=== PATIENT | female | born 1995 | race Caucasian/White ===

== ENCOUNTER 2017-11-08 13:31 | Inpatient (IN) ==
[2017-11-08] MEDS ORDERED: ACETAMINOPHEN 650 MG/20.3 ML SOLUTION PO PRN (15:36)
[2017-11-08] MEDS ORDERED: Bisacodyl EC TAB 5 MG TABLET PO PRN (15:40)
[2017-11-08] MEDS ORDERED: CALCIUM CARBONATE 500 MG TABLET PO SCH (15:45)
--- NOTE | 2017-11-08 15:58 | IRU History & Physical Report ---
HPI U Date: Date: 11/08/17 Time: 154 Chief complaint: My memory is poor and I'm weak HPI: Ms. Sheth is a very pleasant 22-year-old female referred by Dr. Sami Faust in [place]. Her primary care physician is Dr. Karan Victor. The patient underwent Karan-en-Y gastric bypass procedure in July 2017 for morbid obesity. Since that time she has had frequent episodes of vomiting and has required intravenous fluids due to electrolyte imbalance and dehydration. The vomiting has improved somewhat although she states that she continues to have fairly constant nausea and at least one episode of emesis of food particles daily. She has been given numerous antinausea medications including Zofran, Reglan, scopolamine patch and nothing is really work. She was given Phenergan but that made her sleepy. She has lost some 100 pounds since the surgery in July. She states that she does not modify her diet in terms of consistency. She tries to eat smaller quantities. She was started on daily IV fluids due to dehydration and recurrent nausea and vomiting. That lasted about a week. Some time during that episode she was diagnosed with bilateral otitis externa. Culture was positive for what appear to be community-acquired MRSA. She was placed on IV vancomycin and also had been receiving intravenous fluids 1-2 L with potassium daily as an outpatient. Upon reassessing her laboratory values she was noted to have a vancomycin trough level of 39 and a creatinine elevated at 3.4. For this reason she was admitted to [facility]. The patient was hospitalized at [facility] on 10/22/2017. She was seen by nephrology who felt as though the acute kidney injury was related either to dehydration or tubular toxicity induced by vancomycin. Her initial creatinine on October 22 was 3.4. Baseline was normal at 0.6 back in August 2017. Most recent creatinine available is 1.5 as of 11/07/2017. Renal ultrasound was negative. She did not require dialysis. She was seen by infectious disease (Dr. Jimmie Longoria) in [place]. Diagnosis was bilateral otitis externa consistent with impetigo or superficial community- acquired MRSA infection. He raised the possibility of relapsing polychondritis but felt as though the areas of the pinnae involved were not typical for that condition. He recommended discontinuance of vancomycin and use of topical agents on an as-needed basis only. While in [place] she experienced an episode of altered mental status. Based on neurology comments (10/28/2017) from [place], her altered mental status consisted of headache, blurry vision and lethargy. CT scan was done which was negative. While in the CT scanner room she experienced seizure-like activity. According to the nurse, the patient "turned blue and stopped breathing" but it is not clear if the pulse was lost. CPR was started. Patient was not on the monitor at the time. She regained consciousness within 1 minute. She was given lorazepam 2 mg IV then loaded with Keppra. Troponin was normal. MRI of brain ( findings consistent with hypertensive encephalopathy), CT scan of head (normal) and carotid Doppler studies (no hemodynamically significant stenoses) were performed. Electroencephalogram was done on 10/28/2017 demonstrating no definite seizure activity. The final diagnosis appears to be hypertensive encephalopathy with seizure. She remains on Keppra. The patient also reports short-term memory loss. This is quite severe she states. She continues to have reduced memory and does not recall her admission to [place] nor does she recall the initial several days of her stay there. During the conversation today she would get distracted and not remember what she was talking about. She appears to continue to have evidence of some encephalopathic changes. In addition, the patient reports numbness and tingling from about the bra line on down. This started on her abdomen bilaterally then progressed up into her chest and down into the legs. At one point it was involving both lower extremities including the ankles and feet. The ankles and feet are a bit better but she continues to have loss of sensation she states from the upper chest on down to about the knees or below. In addition she has developed significant muscular weakness. She has fallen on several occasions she states at [place] and feels as though her legs are quite weak. She was seen by neurology in [place] but this issue was not addressed according to records I have available. She believes this is accounting for much of her falling episodes and leg weakness. She denies back pain. She has not had imaging of her spine to my knowledge. Due to her continued nausea and vomiting, an EGD was performed on 10/29/2017 which was reportedly normal. She was told that her nausea and vomiting were "in my head" and that is why none of the medications have helped her in this regard. She also has history of obstructive sleep apnea diagnosed in January 2007. She had only 7 episodes of hypomania/apnea per hour. She had hypoxemia with 66% marta with 25 minutes under 89% SaO2. She was treated with auto CPAP 5-15 mm H2O. She was diagnosed with "mild" obstructive sleep apnea and has not really used her CPAP on a regular basis. The patient lives here in [facility] in her own apartment with her and 3 children and did not use any assistive devices at home. She has 4 steps to get up into her home and has a railing on the right side. Her prior level of functioning was independent for all activities. Current level of functioning indicates that she is modified independent for grooming, supervision level for upper and lower body dressing and toileting, requires moderate assistance for bed/chair/wheelchair transfers and minimum assistance for toilet transfers. She requires total assistance with walking with a walker rolling walker only 19 feet. She does require verbal cues more than 75% of the time. In addition she demonstrates buckling of both knees as she ambulates. She frequently states that she has a poor short-term memory and this is confirmed by requiring the verbal cues. The following medical conditions are noted and require active monitoring and/or management: 1. Encephalopathy characterized by episode of altered mental status in [place] with seizure, blurred vision, poor short-term memory and confusion. Etiology is not clear but likely hypertensive encephalopathy played a role. Patient is on Keppra and at risk for further neurologic events. 2. Hypertension: with recent encephalopathy 3. Paresthesias and motor weakness from mid-T spine on down resulting in frequent falls. 4. Acute kidney injury: Likely secondary to dehydration plus or minus effect of vancomycin. 5. Recurrent nausea and vomiting and risk of continued dehydration. 6. Recent bilateral otitis media: resolved. The following therapies will be needed: 1. Physical therapy: for transfers and ambulation and stairs. 2. Occupational therapy: for ADL's and transfers. 3. Medical management: for the above conditions. 4. 24 hour Rehabilitation Nursing to monitor and address the following: To closely monitor her vital signs including blood pressure, neurologic status and mental status in view of her encephalopathy. [facility] Patient Stated Medical History Hx Renal Disease No Now No: has been bleeding for 4 weeks Medical History Updates: 1. Morbid obesity. 2. Acute kidney injury secondary to dehydration and possibly vancomycin. 3. Hypertension. 4. Hypertensive encephalopathy with seizure. 5. Obstructive sleep apnea. 6. History of bilateral otitis externa Surgical History: 1. Cholecystectomy. 2. Tonsillectomy and adenoidectomy. 3. C -section 1. 4. Laparoscopic repair of diaphragmatic hernia age 15. Unclear if this was a Teresa fundoplication or not. However symptoms preceding this included chest pain and cough. 5. Karan-en-Y gastric bypass procedure July 2017 for morbid obesity. Family History: Patient's parents are both living. Father has hypertension and diabetes. Mother has hypertension. She has 2 brothers one with low back pain and other with irritable bowel syndrome, diarrhea predominant. She reports that diabetes is strongly present in her other relatives. 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 is employed at [employer]. Review of Systems - Constitutional Constitutional: Present: fatigue, weight loss (by intent). Absent: anorexia, chills, fever(s), headache(s), lethargy, malaise, night sweats, weakness, weight gain - EEAZT Eyes: Absent: blurry vision, change in vision, diplopia Mouth/Throat: Absent: changes in swallowing, painful swallowing, change in taste , bleeding gums, change in voice - Cardiovascular Cardiovascular: Absent: chest pain, palpitations, syncope, dyspnea on exertion, orthopnea, edema, cyanosis, heart murmur Rhythm: Present: regular rhythm Vascular: Absent: intermittent claudication, pedal edema, unilateral swelling - Respiratory Respiratory: Absent: cough, dyspnea, hemoptysis, dyspnea on exertion, wheezing, pain on inspiration, chest congestion, excessive phlegm production - Gastrointestinal Gastrointestinal: Absent: abdominal pain, change in bowel habits, constipation, diarrhea, dyspepsia, dysphagia, early satiety, hematochezia, melena, nausea, vomiting - Musculoskeletal Musculoskeletal: Present: muscle weakness (all 4 extremities.). Absent: abnormal gait, arthralgias, back pain, joint swelling, limited range of motion - Integumentary/Breasts Integumentary: Absent: alopecia, erythema, lesions, pruritus, rash, jaundice - Neurological Neurological: Present: frequent falls (reports she has fallen frequently over the last 1-2 weeks.), memory loss (reports short-term memory loss.), numbness ( states that she cannot feel the Lovenox injections going in.), paresthesias ( reports tingling from mid chest on down.), weakness. Absent: abnormal gait, abnormal movements, abnormal speech, confusion, convulsions, dizziness, focal weakness, headache(s), loss of vision, tremor(s) - Psychiatric Psychiatric: Absent: abnormal sleep pattern, anxiety, depression - Endocrine Endocrine: Absent: cold intolerance, flushing, heat intolerance, palpitations - Hematologic/Lymphatic Hematologic/Lymphatic: Absent: easy bleeding, easy bruising, lymphadenopathy - Allergic/Immunologic Allergic/Immunologic: Absent: urticaria Medications Home Medications Medication Instructions Recorded Confirmed Type Etonogestrel [Nexplanon] 68 mg SQ 11/08/17 History Allergies Allergy/AdvReac Type Severity Reaction Status Date / Time No Known Allergies Allergy Verified 10/17/17 14:06 Results IRU - Labs Labs: I reviewed extensive inpatient records from [place]. Exam Vital Signs: Temperature 98.4 F 11/08/17 15:15 Pulse Rate 86 11/08/17 15:15 Respiratory Rate 12 11/08/17 15:15 Blood Pressure 141/90 H 11/08/17 15:15 Pulse Oximetry 97 11/08/17 15:15 - Constitutional Present: no acute distress, well nourished, well developed, morbidly obese, cooperative Comments: During the interview, she is frequently distracted and forgets her train of thought. - Routine HEENT Exam Head: Present: normocephalic, atraumatic. Absent: cushingoid faces, abrasion, laceration, hematoma Eye: Present: EOMI, PERRL (both pupils respond but are a bit sluggish.). Absent : conjunctival icterus, scleral injection, periorbital swelling, nystagmus ENT: Present: mucous membranes moist, oropharynx clear - Routine Neck Exam Present: supple, full ROM, trachea midline. Absent: lymphadenopathy, thyromegaly, tenderness, swelling - Routine Chest/Breast/Axilla Exam Chest wall: Absent: tenderness, mass Axillae: Absent: lymphadenopathy, mass - Routine Respiratory Exam Present: CTA bilaterally. Absent: accessory muscle use, decreased breath sounds , prolonged expiratory phase, rales, respiratory distress, rhonchi, stridor, wheezes, crackles, distant breath sounds - Routine Cardiovascular Exam Present: RRR, S1, S2, no murmur. Absent: gallop, S3, S4, click, irregular rhythm - Routine Abdominal Exam Present: soft, normoactive bowel sounds, non distended, non tender. Absent: rebound, guarding, firm, rigid, organomegaly, mass, hernia, wound Comments: Multiple ecchymoses on abdomen presumably secondary to heparin. - Routine Extremities Exam Present: no edema, non tender, pulses intact, normal capillary refill. Absent: cyanosis, clubbing - Routine Back/Spine/Pelvis Exam Back/Spine: Present: full ROM. Absent: scoliosis, kyphosis - Routine Skin Exam Present: intact, dry, warm. Absent: cyanosis, erythema, pallor, mottling, petechiae, urticaria, lesions, jaundice - Routine Neurological Exam Present: alert, oriented X3, CN II-XII intact, sensory deficit, motor deficit, altered mental status (I did not do a formal memory test although patient does appear to have reduced short-term memory.), moving all extremities, normal speech At the present time the patient is awake and alert and appears to be oriented. Her speech is fluent. There is no facial droop. However, short-term memory appears to be reduced. Strength is reduced bilaterally in the upper lower extremities. Flexion at left hip is reduced compared to right hip. She can raise each leg off the bed independently against resistance but not very far. Plantarflexion and dorsiflexion at the ankles appears to be normal. DTRs appear to be absent in the lower extremities. They're reduced in both upper extremities. Vibratory sensation is amazingly normal at both ankles. Pinprick sensation appeared to be fairly normal at the lower legs bilaterally. However it is markedly reduced in the abdomen bilaterally. - Routine Psychiatric Exam Present: normal affect, normal thought process, cooperative, good insight, good judgment. Absent: depressed, anxious Sepsis Assessment - Evaluation Severe Sepsis: none seen IRU A/P (1) Encephalopathy Current visit: Yes Status: Acute Patient displayed altered mental status while in [facility]. She continues to display reduced short-term memory. MRI was consistent with hypertensive encephalopathy. She is at risk for further neurologic changes. We will involve speech therapy for assessment of her cognition. (2) Benign essential hypertension Current visit: Yes Status: Chronic She states that she has had some elevated blood pressure from time to time. However it has not been as high as it has been in [place]. She is now on several medications for blood pressure. Her blood pressure today is borderline elevated at 140/90. She is at risk for further hypertensive changes and uncontrolled hypertension. She requires 24 hour rehabilitation nursing monitoring of her blood pressure as well as neurologic status. (3) Acute kidney injury Current visit: Yes Status: Acute Her creatinine reached a high of 3.4 on 10/22/2017 likely secondary to dehydration. It was normal in August of 0.6. Most recent value is from 2017 at 1.54. She is continuing to be at risk for further dehydration view of her recurrent nausea and vomiting and will need to be monitored carefully for further acute kidney injury. (4) Recurrent vomiting Current visit: Yes Status: Chronic She has had recurrent nausea and vomiting since her bypass procedure in July. It sounds like she may have had a hiatal hernia surgery at age 15 in addition. She is at risk for further electrolyte abnormalities and dehydration and will be monitored carefully in this regard. (5) Paresthesias Current visit: Yes Status: Acute She reports a somewhat unusual syndrome of numbness and tingling initially in the abdomen bilaterally and then radiating up into her chest. It then went down into her thighs and lower extremities. She states this is persisting although is perhaps improved in the feet and ankles. Her vibratory sensation is normal. Her strength is indeed reduced in the lower and upper extremities. The numbness and tingling does not appear to involve the upper extremities. DTRs were not able to be obtained in the lower extremities today. No clonus is noted. Neurologic consultation will be undertaken. DVT Prophylaxis: SCD's, SQ Heparin GI Prophylaxis: Protonix Resuscitation Status: Full Code - Course Hospital Course: John Subramanian MD: - Interventions to Obtain Goals PT Treatment Plan: Balance/Proprioception, Functional Activities, Gait Training , Patient/Family Education, Therapeutic Exercise OT Treatment Plan: ADL (Basic Care), Balance Training, IADL, Pt./Family Education, Ther. Exercise for ADL Goals Progress/Modifications: This medically complex patient will be seen by physical therapy, occupational therapy and speech therapy for their assessment. She has evidence of encephalopathy of unclear etiology but likely at least partially due to her hypertension. She reports reduced short-term memory. In addition she has paresthesias and weakness of all 4 extremities. Her paresthesias appear to be more "central" and are actually improved in the ankles and feet. Whether this is a type of transverse myelitis or not is not clear and we will involve neurology in this regard.
--- NOTE | 2017-11-08 16:18 | IRU 24Hr Post Admit Eval ---
24 Hr Post Admission Physical - Relevant Changes Relevant Changes: Yes (the initial primary issue appear to be that of acute kidney injury. After evaluating the patient, it appears as though her encephalopathy as well as paresthesias and motor weakness are the primary issues.) Reviewed: I have reviewed the patient's information and concur with the finding and results of the pre-admission screen except for the primary diagnosis. She has evidence of encephalopathy likely related to hypertension. She has continued short-term memory loss and occasional confusion. Certification: I certify the patient for rehabilitation. - Patient Condition (1) Encephalopathy Status: Acute Code(s): G93.40 - Encephalopathy, unspecified Classification: Present on IRF Admission, IRF Tx That Should Address Diagnosis, Diagnosis Requiring Medical Follow Up (2) Benign essential hypertension Status: Chronic Code(s): I10 - Essential (primary) hypertension Classification: Present on IRF Admission, IRF Tx That Should Address Diagnosis, Diagnosis Requiring Medical Follow Up (3) Acute kidney injury Status: Acute Code(s): N17.9 - Acute kidney failure, unspecified Classification: Present on IRF Admission, IRF Tx That Should Address Diagnosis, Diagnosis Requiring Medical Follow Up (4) Recurrent vomiting Status: Chronic Code(s): R11.10 - Vomiting, unspecified Classification: Present on IRF Admission, IRF Tx That Should Address Diagnosis, Diagnosis Requiring Medical Follow Up (5) Paresthesias Status: Acute Code(s): R20.2 - Paresthesia of skin Classification: Present on IRF Admission, IRF Tx That Should Address Diagnosis, Diagnosis Requiring Medical Follow Up - Prior Functional Status Lives With: Spouse, With Family Residence Type: Apartment/Private Home Assitive Devices: None Prior Functional Status: Indep. at home or school, Indep. w/ all home ADL, Indep. w/ IADL - Current Functional Status Current Level of Function: Current level of functioning indicates that she is modified independent for grooming, supervision level for upper and lower body dressing and toileting, requires moderate assistance for bed/chair/wheelchair transfers and minimum assistance for toilet transfers. She requires total assistance with walking with a walker rolling walker only 19 feet. She does require verbal cues more than 75% of the time. In addition she demonstrates buckling of both knees as she ambulates. She has numbness and tingling from the mid chest on down. She reports significant weakness of both lower extremities as well as upper extremities. She does display evidence of encephalopathy with poor short-term memory. Failed Alternative Therapy: Arrived from Acute Care Patient Requirements: The patient requires oversight by rehabilitation physician to manage their rehabilitation treatment plan and multidisciplinary approach to care that can only be provided in an IRF and requires a multidisciplinary approach to care, provided by professional PTs, OTs, STs, dieticians, RTs, rehabilitation nurses and is not available in lesser levels of care. Limitations Req: Mobility Impairment, ADL Impairment, Cognitive Impairment Speech Therapy Minutes: 30 Physical Therapy Minutes: 75 Occupational Therapy Minutes: 75 Therapy: The patient is to receive therapy at least 5 days a week. - Complications/Comorbidities Impact on Functional Outcomes: The patient's poor short-term memory as well as motor weakness may negatively impact her functional outcome. Barriers to Discharge: Weakness, Balance, Endurance, Comprehension - Plan to Avoid Complications Plan to Avoid Complications: The patient cannot receive this care in a lesser intensive setting such as [facility] or Outpatient Therapy due to the patient requiring the following : The patient requires close monitoring of her blood pressure and other vital signs in view of the recent excessively high blood pressures. She requires 24- hour rehabilitation nursing monitoring of her cognition and neurologic status. She requires a multidisciplinary approach with physical therapy, occupational therapy as well as assessment by speech therapy along with medical supervision.
[2017-11-08] MEDS ORDERED: CALCIUM CARBONATE Chewable 500mg TABLET PO PRN (17:30)
[2017-11-08] MEDS: SUCRALFATE 1gm/10ml ORAL LIQUID PO SCH ×2 (17:36→20:51)
[2017-11-08] MEDS: CARVEDILOL 6.25 MG TABLET PO SCH (17:36)
[2017-11-08 17:42] VITALS: BMI 52.3
[2017-11-08] MEDS ORDERED: FALL RISK - PHARMACY CONSULT XX ONE (18:31)
[2017-11-08] MEDS: DOCUSATE SODIUM 100 MG CAPSULE PO SCH (20:51)
[2017-11-08] MEDS: LEVETIRACETAM 500 MG TABLET PO SCH (20:51)
[2017-11-08] MEDS: PANTOPRAZOLE 40 MG TABLET PO SCH (20:51)
[2017-11-08] MEDS: ATORVASTATIN 40 MG TABLET PO SCH (20:51)
[2017-11-08] MEDS: MAGNESIUM OXIDE 400 MG TABLET PO SCH (20:51)
[2017-11-08] MEDS: HEPARIN SUB-Q 5,000units/0.5ml INJECTION SQ SCH (22:52)
[2017-11-09] MEDS: SUCRALFATE 1gm/10ml ORAL LIQUID PO SCH ×5 (05:09→20:12)
[2017-11-09] MEDS: PANTOPRAZOLE 40 MG TABLET PO SCH ×3 (05:09→20:10)
[2017-11-09] MEDS: LEVETIRACETAM 500 MG TABLET PO SCH ×2 (08:35→20:10)
[2017-11-09] MEDS: CARVEDILOL 6.25 MG TABLET PO SCH ×2 (08:35→17:47)
[2017-11-09] MEDS: MAGNESIUM OXIDE 400 MG TABLET PO SCH ×2 (08:35→20:10)
[2017-11-09] MEDS: MULTI-VITAMIN + MINERAL TABLET PO SCH (08:35)
[2017-11-09] MEDS: AMLODIPINE 10 MG TABLET PO SCH (08:35)
[2017-11-09] MEDS: DOCUSATE SODIUM 100 MG CAPSULE PO SCH ×2 (08:35→20:10)
[2017-11-09] MEDS: HEPARIN SUB-Q 5,000units/0.5ml INJECTION SQ SCH ×2 (11:05→20:11)
--- NOTE | 2017-11-09 14:34 | Consult Note ---
Consult Information - Data of Consult Consult date: 11/09/17 Requesting Physician: John Subramanian MD Primary Care Provider: MD Karan Johnson MD Family Provider: Karan Victor MD - Consult Narrative Reason for consult: Medical management, encephalopathy, generalized debility History of present illness: Pippa Sheth is a very pleasant 22-year-old female patient of Dr. Karan Victor who was admitted to IRU on 11/08/17 for generalized debility and weakness as well as encephalopathy secondary to recent acute illness. She reports that she underwent Karan-en-Y gastric bypass procedure in July 2017 for treatment of morbid obesity. Since that time she has had frequent episodes of vomiting and has required intravenous fluids due to electrolyte imbalance and dehydration multiple times. Since her surgery, she has been given numerous antinausea medications including Zofran, Reglan, scopolamine patch and Phenergan without improvement in her symptoms. She has lost some 100 pounds since the surgery in July 2018. Due to her intractable nausea and vomiting, she was recently started on daily IV fluids as an outpatient for dehydration. During that time, she was subsequently diagnosed with bilateral otitis externa. Cultures were obtained from her ears and were positive for what appear to be community-acquired MRSA. She began treatment with IV vancomycin. She reportedly also struggled with hypokalemia which was managed with supplemental potassium in her daily IV fluids as an outpatient. Upon reassessing her labs, she was noted to have a vancomycin trough level of 39 and an elevated creatinine at 3.4. Prior labs from August 2017 revealed a creatinine of 0.6. She was then hospitalized at [facility] on 10/22/2017. She was seen by nephrology who felt as though the acute renal failure was related either to dehydration or tubular toxicity induced by vancomycin. Upon admission at [facility] on 10/22/17, her creatinine was 3.4. A renal ultrasound was negative and she did not require dialysis. She was also seen by infectious disease (Dr. Jimmie Longoria) during her acute hospitalization and diagnosis with bilateral otitis externa consistent with impetigo or superficial community-acquired MRSA infection. He recommended discontinuance of vancomycin and use of topical agents on an as-needed basis only. In addition to her acute renal failure, she reportedly experienced an episode of altered mental status including headache, blurry vision and lethargy. CT head was obtained and was unremarkable. Records indicate that while she was in the CT scanner room, she experienced seizure-like. According to the nurse present, she "turned blue and stopped breathing" but it is not clear if the pulse was lost as she was not on the monitor at the time. CPR was started and she regained consciousness within 1 minute. She was given lorazepam 2 mg IV then loaded with Keppra. MRI of brain was then obtained and revealed findings consistent with hypertensive encephalopathy. She also underwent carotid Doppler studies which showed no hemodynamically significant stenoses. EEG was done on 10/28/2017 demonstrating no definite seizure activity. The final diagnosis appears to be hypertensive encephalopathy with seizure. She was seen and evaluated by neurology and remains on Keppra. Since her initial seizure, she complains of short-term memory loss which she states is quite severe. She continues to have reduced memory and does not recall her admission to [place] nor does she recall the initial several days of her stay there. In addition, she reports numbness and tingling from about the bra line on down. This started on her abdomen bilaterally then progressed up into her chest and down into the legs. At one point, it was involving both lower extremities including the ankles and feet. The ankles and feet are a bit better but she continues to report loss of sensation from the upper chest on down to about the knees or below. She has also developed significant muscular weakness and has fallen on several occasions which she feels is because her legs are so weak. Due to her continued nausea and vomiting, an EGD was performed on 10/29/2017 which was reportedly normal. She was told that her nausea and vomiting were "in my head" and that is why none of the medications have helped her in this regard. Due to her generalized weakness and debility, she was admitted to [facility] for continued strengthening and improvement in functional abilities. The hospitalist service was consulted for medical management given her current encephalopathy characterized by an episode of altered mental status with a witnessed seizure, blurred vision, poor short-term memory and confusion. believed to be secondary to hypertensive encephalopathy, as well as her reported paresthesias and motor weakness and recent acute renal failure, intractable nausea and vomiting with high risk of dehydration. Past Medical History Medical History Updates: Morbid obesity. Hyperlipidemia. Hypertension. GERD. Constipation. Intractable nausea and vomiting. Obstructive sleep apnea. History of acute renal failure - 10/2017. History of hypertensive encephalopathy with seizure - 10/2017. History of bilateral otitis externa - 2017. Surgical History: 1. Cholecystectomy. 2. Tonsillectomy and adenoidectomy. 3. C -section 1. 4. Laparoscopic repair of diaphragmatic hernia age 15. Unclear if this was a Teresa fundoplication or not. However symptoms preceding this included chest pain and cough. 5. Karan-en-Y gastric bypass procedure July 2017 for morbid obesity. 6. EGD (unremarkable) - 10/29/2017. Family History Updates: Father - living, hypertension, diabetes. Mother - hypertension. Brother #1 - low back pain. Brother #2 - IBS. Admits to strong family history of diabetes. 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 Karan Victor. Review of Systems All systems PM: 10-point ROS was reviewed, no additional remarkable complaints except - Constitutional Constitutional: Present: fatigue, weakness, weight loss. Absent: chills, fever( s) - EENMT Eyes: Absent: loss of vision Balance: Absent: falling to one side Nose: Absent: nosebleeds Mouth/Throat: Absent: sore throat, changes in swallowing - Cardiovascular Cardiovascular: Absent: chest pain, palpitations, syncope Rhythm: Present: regular rhythm Vascular: Absent: pallor of an extermity - Respiratory Respiratory: Absent: cough, dyspnea, hemoptysis, wheezing - Gastrointestinal Gastrointestinal: Present: constipation, nausea, vomiting. Absent: abdominal pain - Genitourinary Genitourinary: Absent: dysuria, hematuria - Musculoskeletal Musculoskeletal: Present: muscle weakness. Absent: deformity - Integumentary/Breasts Integumentary: Absent: rash - Neurological Neurological: Present: weakness. Absent: dizziness, focal weakness - Psychiatric Psychiatric Comments: difficulty concentrating. - Endocrine Endocrine: Absent: flushing, palpitations - Hematologic/Lymphatic Hematologic/Lymphatic: Absent: easy bruising - Allergic/Immunologic Allergic/Immunologic: Absent: seasonal rhinorrhea Medications Home Medications Medication Instructions Recorded Confirmed Type Etonogestrel [Nexplanon] 68 mg SQ 04/04/18 History Allergies Allergy/AdvReac Type Severity Reaction Status Date / Time No Known Allergies Allergy Verified 10/17/17 14:06 Exam Vital Signs: Temperature 97.6 F 11/09/17 07:00 Pulse Rate 112 H 11/09/17 07:00 Respiratory Rate 16 11/09/17 07:00 Blood Pressure 136/92 H 11/09/17 07:00 Pulse Oximetry 98 11/09/17 07:00 Height/Weight/BMI: Height 5 ft 5 in Weight 314 lb 6.067 oz Body Mass Index 52.3 - Constitutional Present: no acute distress, well nourished, well developed, morbidly obese, cooperative - Routine HEENT Exam Head: Present: normocephalic, atraumatic Eye: Present: PERRL. Absent: conjunctival icterus ENT: Present: mucous membranes moist - Routine Neck Exam Present: supple, full ROM, trachea midline - Routine Chest/Breast/Axilla Exam Chest wall: Absent: tenderness - Routine Respiratory Exam Present: CTA bilaterally. Absent: rhonchi, stridor, wheezes, crackles - Routine Cardiovascular Exam Present: RRR, S1, S2 - Routine Abdominal Exam Present: soft, normoactive bowel sounds, non distended, non tender - Routine Extremities Exam Present: non tender, full ROM, pulses intact - Routine Back/Spine/Pelvis Exam Back/Spine: Present: full ROM. Absent: vertebral tenderness - Routine Skin Exam Present: intact, dry, warm. Absent: jaundice Comments: afebrile - Routine Neurological Exam Present: alert, oriented X3, CN II-XII intact, moving all extremities, hearing grossly intact, normal speech. Absent: facial asymmetry - Routine Psychiatric Exam Present: normal affect, cooperative Results - Labs CBC & Chem 7: 11/09/17 04:41 11/09/17 04:41 Assessment and Plan (1) Physical debility Current visit: Yes Status: Acute (2) Nausea & vomiting Current visit: No Status: Acute (3) Encephalopathy Current visit: Yes Status: Acute Assessment and Plan: Acute Medical Conditions. Encephalopathy - recent hypertensive encephalopathy with seizure. Hypokalemia (K 3.5), present on admission. Recent acute renal failure with elevated creatinine. Paresthesias and motor weakness. Generalized debility. Intractable nausea and vomiting with high risk of dehydration. Chronic Medical Conditions. Morbid obesity - BMI > 50. Hyperlipidemia. Hypertension. GERD. Constipation. Intractable nausea and vomiting. Obstructive sleep apnea. Plan - 11/09/17: Agree with admission to IRU for strengthening and improvement in functional abilities. Encourage participation in therapies. Labs obtained on admission. SCr remains elevated from baseline at 1.5 and GFR 43. Will continue to monitor periodically throughout admission. Hypokalemia noted (K 3.5). Will given KCl 20 mEq po x 1 dose and recheck BMP in AM. CBC was unremarkable. Will continue home medications for chronic conditions. - Lipitor 80mg QHS - hyperlipidemia. - Norvasc 10mg daily and Coreg 6.25 BID - hypertension. - Tums, Carafate and Protonix - GERD. - Dulcolax and Colace - constipation. Continue Keppra due to recent seizure at [facility]. Monitor neurologic function closely. Encourage use of home CPAP machine for obstructive sleep apnea. Monitor blood pressure closely. Upon discharge, patient's care will be returned to her PCP, Dr. Victor. DVT Prophylaxis: SQ Heparin GI Prophylaxis: Protonix Resuscitation Status: Full Code - Time spent with patient Time with patient PN: 50 minutes - Physician Narrative Physician: Lawson Bush MD Narrative: Date: 11/09/17 Time: 1804 Have independently interviewed and examined pt. Chart reviewed. Case discussed with my PA. Above care plan developed with my supervision; agree with above. Admitted to IRU for restorative therapy following prolonged hospitalization. Very tired and weak this evening after a hard day of therapy. Encouraged she was able to do so much, but knows she has a lot of gains to make to be able to go home. Still feels fuzzy to brain. Breathing well. Nausea stable. Did eat well this evening. Lungs: clear bilaterally CV: tachy, regular MSE: awake alert appropriate Plan: Agree with admission of patient to IRU for intensive therapy to restore functional status. Continue with medications as outlined from recent hospitalization. Will need intermittent monitoring of lab during hospitalization. Encourage therapy and activities. Medically stable for IRU floor activities. Hospital Course Summary Disclaimer: The visit summary below is not to be considered part of the above Progress Note. Hospital Course: Plan - 11/09/17: Agree with admission to IRU for strengthening and improvement in functional abilities. Encourage participation in therapies. Labs obtained on admission. SCr remains elevated from baseline at 1.5 and GFR 43. Will continue to monitor periodically throughout admission. Hypokalemia noted (K 3.5). Will given KCl 20 mEq po x 1 dose and recheck BMP in AM. CBC was unremarkable. Will continue home medications for chronic conditions. - Lipitor 80mg QHS - hyperlipidemia. - Norvasc 10mg daily and Coreg 6.25 BID - hypertension. - Tums, Carafate and Protonix - GERD. - Dulcolax and Colace - constipation. Continue Keppra due to recent seizure at [facility]. Monitor neurologic function closely. Encourage use of home CPAP machine for obstructive sleep apnea. Monitor blood pressure closely. Upon discharge, patient's care will be returned to her PCP, Dr. Victor.
[2017-11-09] MEDS ORDERED: POTASSIUM CHLORIDE 20 MEQ/15 ML ORAL LIQUID PO ONE (15:15)
[2017-11-09] MEDS: ACETAMINOPHEN 325 MG TABLET PO PRN ×2 (16:45→21:32)
[2017-11-09] MEDS: ATORVASTATIN 40 MG TABLET PO SCH (20:12)
[2017-11-10] MEDS: ACETAMINOPHEN 325 MG TABLET PO PRN ×4 (01:57→20:36)
[2017-11-10] MEDS: PANTOPRAZOLE 40 MG TABLET PO SCH ×2 (06:29→20:35)
[2017-11-10] MEDS: SUCRALFATE 1gm/10ml ORAL LIQUID PO SCH ×4 (06:29→20:35)
[2017-11-10] MEDS: ONDANSETRON 4 MG TABLET PO PRN (08:35)
[2017-11-10] MEDS: HEPARIN SUB-Q 5,000units/0.5ml INJECTION SQ SCH ×2 (10:25→20:35)
[2017-11-10] MEDS: AMLODIPINE 10 MG TABLET PO SCH (10:26)
[2017-11-10] MEDS: DOCUSATE SODIUM 100 MG CAPSULE PO SCH ×2 (10:26→20:35)
[2017-11-10] MEDS: LEVETIRACETAM 500 MG TABLET PO SCH ×2 (10:26→20:35)
[2017-11-10] MEDS: CARVEDILOL 6.25 MG TABLET PO SCH ×2 (10:26→16:43)
[2017-11-10] MEDS: MULTI-VITAMIN + MINERAL TABLET PO SCH (10:26)
[2017-11-10] MEDS: MAGNESIUM OXIDE 400 MG TABLET PO SCH ×2 (10:26→20:35)
--- NOTE | 2017-11-10 10:30 | XRay Report ---
Indication: fall to left knee PROCEDURE: XR knee LT 2V: Encounter: Initial Comparison: None Findings: There is no acute fracture, dislocation or malalignment identified. Joint spaces are normal. Impression: No acute osseous abnormality. .
--- NOTE | 2017-11-10 16:04 | IRU Progress Note ---
- Subjective/Serverity of Illness Date: 11/10/17 Pippa was evaluated in her room on inpatient rehabilitation with her mother and another adult present. She has had 2 episodes where her knees have buckled. One was with the left knee buckling and the wound was with the right. Radiograph was obtained with the affected knee and this was negative. She has had numerous falling spells since her gastric bypass procedure in July 2017. She had several episodes in [place]. Again she repeats her story to me today as she had previously. She also complains that her short-term memory is very poor and I would tend to agree with that. She complains of paresthesias initially involving the abdomen and then going down into her thighs and now up in her anterior chest. Also has lower extremity weakness and now her arms are getting a bit weak. She denies any difficulty swallowing. She continues to have episodes of emesis and vomited food twice this morning. Dietitian is working with her as well. She continues to have evidence of encephalopathy with repeated explanations of her situation to me. With therapy she is cooperative but has had the knees buckling as noted above. Medical issues we are currently managing and/or monitoring actively: 1. Encephalopathy characterized by episode of altered mental status: She remains on Keppra for seizure activity in [place]. She continues to have poor short-term memory and repeats herself. 2. Hypertension: Review blood pressures indicates adequate control at present. 3. Paresthesias and motor weakness from mid-T spine on down resulting in frequent falls. Etiology is not clear. Whether this represents transverse myelitis or a spine issue is not clear. Neurologic consultation is ordered. 4. Acute kidney injury: She continues to have improving creatinines down to 1.5 then 1.3 with estimated GFR 50. 5. Recurrent nausea and vomiting and risk of continued dehydration. This continues to be an issue and is likely related to her gastric bypass. 6. Recent bilateral otitis media: resolved. Exam Vital Signs: Temperature 98.4 F 11/10/17 07:00 Pulse Rate 112 H 11/10/17 11:58 Respiratory Rate 16 11/10/17 07:00 Blood Pressure 146/82 H 11/10/17 11:58 Pulse Oximetry 96 11/10/17 11:58 Height/Weight/BMI: Height 1.65 m Weight 142.6 kg Body Mass Index 52.3 - Constitutional Present: well nourished, well developed, morbidly obese, cooperative, other ( repeats stories to me) - Routine HEENT Exam Head: Present: normocephalic Eye: Present: EOMI, PERRL ENT: Present: mucous membranes moist, oropharynx clear - Routine Neck Exam Present: supple - Routine Respiratory Exam Present: CTA bilaterally. Absent: dyspnea, decreased breath sounds, wheezes, crackles - Routine Cardiovascular Exam Present: RRR, S1, S2. Absent: murmur - Routine Abdominal Exam Present: soft, normoactive bowel sounds, non distended. Absent: tenderness - Routine Extremities Exam Present: no edema, normal capillary refill - Routine Skin Exam Present: dry, warm - Routine Neurological Exam Present: alert, oriented X3, CN II-XII intact Strength was assessed in upper and lower extremities. She appears to have excellent strength bilaterally at flexion and extension of the elbows and wrists. Appears to have good strength at flexion of the hips bilaterally as well as knees and ankles. Uncertain reason for the buckling of the knees. No fasciculations are identified. - Routine Psychiatric Exam Present: normal affect Comments: Repetitive stories. Results IRU - Labs Labs: Reviewed labs and other providers notes. IRU A/P (1) Encephalopathy Current visit: Yes Status: Acute Continues to report poor short-term memory and I would agree with this. Her blood pressures are well controlled. Etiology of the repetitious stories not clear. (2) Benign essential hypertension Current visit: Yes Status: Chronic Blood pressures reviewed and are adequately controlled at present. (3) Acute kidney injury Current visit: Yes Status: Acute Slowly improving creatinine down to 1.3 with EGFR 50. (4) Recurrent vomiting Current visit: Yes Status: Chronic Continues to have emesis, twice today. Likely this is related to her gastric bypass. (5) Paresthesias Current visit: Yes Status: Acute DVT Prophylaxis: SQ Heparin Resuscitation Status: Full Code - Course Hospital Course: John Subramanian MD: 11/10/17 16:06 Has had a couple of episodes of buckling of the knees of unclear etiology. Blood pressures are well controlled. Remains on Keppra. Continues to demonstrate encephalopathy with repeated statements. - Interventions to Obtain Goals PT Treatment Plan: Balance/Proprioception, Functional Activities, Gait Training , Patient/Family Education, Therapeutic Exercise OT Treatment Plan: ADL (Basic Care), Balance Training, IADL, Pt./Family Education, Ther. Exercise for ADL Goals Progress/Modifications: Patient is cooperative with acute rehabilitation. Neurologic consultation will be obtained. Patient's blood pressures are well controlled. Concerned about the knee buckling and whether this could represent transverse myelitis versus a primary spine problem. Her muscle strength appears to be actually fairly good when tested independently. Therefore is not clear what is causing her to go down. Knee x-ray reviewed and unremarkable.Please note that the patient's individual plan of care was developed and documented today, requiring review of therapy notes, medical conditions and anticipated functional recovery. This required additional medical decision making with regard to interaction of the patient's medical issues with the anticipated functional recovery. Please see separate document.
--- NOTE | 2017-11-10 16:11 | IRU Plan of Care ---
[facility] Overall Plan of Care - Date Date: 11/10/17 - Patient Impairments (1) Encephalopathy Code(s): G93.40 - Encephalopathy, unspecified Status: Acute Classification: Present on IRF Admission, IRF Tx That Should Address Diagnosis, Diagnosis Requiring Medical Follow Up (2) Nausea & vomiting Qualifiers: Vomiting type: unspecified Vomiting Intractability: non-intractable Qualified Code(s): R11.2 - Nausea with vomiting, unspecified Code(s): R11.2 - Nausea with vomiting, unspecified Status: Acute Classification: Present on IRF Admission, IRF Tx That Should Address Diagnosis, Diagnosis Requiring Medical Follow Up (3) Physical debility Code(s): R53.81 - Other malaise Status: Acute Classification: Present on IRF Admission, IRF Tx That Should Address Diagnosis, Diagnosis Requiring Medical Follow Up (4) Acute kidney injury Code(s): N17.9 - Acute kidney failure, unspecified Status: Acute Classification: Present on IRF Admission, IRF Tx That Should Address Diagnosis, Diagnosis Requiring Medical Follow Up (5) Paresthesias Code(s): R20.2 - Paresthesia of skin Status: Acute Classification: Present on IRF Admission, IRF Tx That Should Address Diagnosis, Diagnosis Requiring Medical Follow Up (6) Benign essential hypertension Code(s): I10 - Essential (primary) hypertension Status: Chronic Classification: Present on IRF Admission, IRF Tx That Should Address Diagnosis, Diagnosis Requiring Medical Follow Up - Relevant Changes Relevant Changes: Yes Reviewed: I have reviewed the patient's information and concur with the finding and results of the pre-admission screen. Certification: I certify the patient for rehabilitation. - Medical Prognosis Medical Prognosis: Good Vital Signs: Last Vital Signs Temp 98.4 F 11/10/17 07:00 Pulse 112 H 11/10/17 11:58 Resp 16 11/10/17 07:00 BP 146/82 H 11/10/17 11:58 Pulse Ox 96 11/10/17 11:58 - Anticipated Interventions Anticipated Interventions: The patient requires inpatient IRF care for PT, OT, and/or ST for residuals remaining from hypertensive urgency with seizure and encephalopathy resulting in muscular weakness and strength deficits. An individualized overall plan of care has been developed after careful review of the patient's preadmission screening, post admission physician evaluation and assessments of all therapy disciplines and/or other pertinent clinicians involved in treating the patient. This indicates medical necessity and rehabilitation necessity have been established through a thorough review of all available medical information. Strength Deficits: Right Lower Extremity, Left Lower Extremity - Current Functional Status Failed Alternative Therapy: Arrived from Acute Care Patient Requires: The patient requires oversight by rehabilitation physician to manage their rehabilitation treatment plan and multidisciplinary approach to care that can only be provided in an IRF and requires a multidisciplinary approach to care, provided by professional PTs, OTs, STs, rehabilitation nurses, and may require STs, dieticians, and RTS. This is not available in lesser levels of care. Therapy: The patient is to receive therapy at least [address] Treatment Plan: Cognitive Linguistic Tx ST Treatment Plan Duration: One Week ST Treatment Plan Frequency: Two Times Per Week Plan of Care Comment: ST will continue to follow per plan of care. Comments: Physical therapy: 75 minutes 3 days weekly, 90 minutes 2 days weekly Occupational therapy: 75 minutes 3 days weekly, 90 minutes 2 days weekly Speech therapy: 30 minutes 3 days weekly - Anticipated LOS/Outcomes Anticipated Functional Outcome: It is anticipated the patient will be able to return to her home with modified independent level of functioning, able to perform ADLs and IADLs at independent to modified independent level. It is anticipated that her blood pressure will be adequately controlled and her cognition will be substantially improved. Anticipated Length of Stay (days): 14 Anticipated DC Destination: Home, Self Assisted Safety Plan: The patient will be provided with the development of a Home Safety Plan for return to a home or home-like environment and and to ensure safety post discharge. - Plan to Avoid Complications Barriers to Attaining Goals: Weakness, Balance, Endurance, Comprehension Plan to Avoid Complications: The patient cannot receive this care in a lesser intensive setting such as [facility] or Outpatient Therapy due to the patient requiring the following : Patient requires close monitoring of her blood pressures in view of the recent hypertensive urgency. She requires close monitoring of her neurologic status in view of paresthesias and lower extremity muscle weakness. She requires close monitoring of cognition. She requires a multidisciplinary approach with physical therapy, occupational therapy and speech therapy with medical supervision.
[2017-11-10] MEDS: ATORVASTATIN 40 MG TABLET PO SCH (20:35)
[2017-11-11] MEDS: ACETAMINOPHEN 325 MG TABLET PO PRN ×3 (05:01→21:58)
[2017-11-11] MEDS: PANTOPRAZOLE 40 MG TABLET PO SCH ×3 (05:16→20:18)
[2017-11-11] MEDS: SUCRALFATE 1gm/10ml ORAL LIQUID PO SCH ×5 (05:16→20:18)
[2017-11-11] MEDS: DOCUSATE SODIUM 100 MG CAPSULE PO SCH ×2 (08:55→21:57)
[2017-11-11] MEDS: HEPARIN SUB-Q 5,000units/0.5ml INJECTION SQ SCH ×2 (08:55→21:55)
[2017-11-11] MEDS: CARVEDILOL 6.25 MG TABLET PO SCH ×2 (08:55→18:46)
[2017-11-11] MEDS: MAGNESIUM OXIDE 400 MG TABLET PO SCH ×2 (08:55→21:58)
[2017-11-11] MEDS: MULTI-VITAMIN + MINERAL TABLET PO SCH (08:55)
[2017-11-11] MEDS: AMLODIPINE 10 MG TABLET PO SCH (08:55)
[2017-11-11] MEDS: LEVETIRACETAM 500 MG TABLET PO SCH ×2 (08:55→21:56)
[2017-11-11] MEDS: ONDANSETRON 4 MG TABLET PO PRN ×2 (12:46→19:54)
[2017-11-11] MEDS: ATORVASTATIN 40 MG TABLET PO SCH (21:57)
[2017-11-12] MEDS: ACETAMINOPHEN 325 MG TABLET PO PRN ×3 (03:49→21:31)
[2017-11-12] MEDS: ONDANSETRON 4 MG TABLET PO PRN ×2 (03:50→12:32)
[2017-11-12] MEDS: SUCRALFATE 1gm/10ml ORAL LIQUID PO SCH ×4 (06:45→21:19)
[2017-11-12] MEDS: PANTOPRAZOLE 40 MG TABLET PO SCH ×2 (06:45→21:19)
[2017-11-12] MEDS: MULTI-VITAMIN + MINERAL TABLET PO SCH (08:43)
[2017-11-12] MEDS: CARVEDILOL 6.25 MG TABLET PO SCH ×2 (08:43→18:30)
[2017-11-12] MEDS: MAGNESIUM OXIDE 400 MG TABLET PO SCH ×2 (08:43→21:19)
[2017-11-12] MEDS: LEVETIRACETAM 500 MG TABLET PO SCH ×2 (08:43→21:20)
[2017-11-12] MEDS: AMLODIPINE 10 MG TABLET PO SCH (08:44)
[2017-11-12] MEDS: DOCUSATE SODIUM 100 MG CAPSULE PO SCH ×2 (08:44→21:19)
[2017-11-12] MEDS: HEPARIN SUB-Q 5,000units/0.5ml INJECTION SQ SCH ×2 (09:33→21:20)
[2017-11-12] MEDS: ATORVASTATIN 40 MG TABLET PO SCH (21:18)
[2017-11-13] MEDS: ACETAMINOPHEN 325 MG TABLET PO PRN ×2 (06:07→15:39)
[2017-11-13] MEDS: PANTOPRAZOLE 40 MG TABLET PO SCH ×2 (06:07→21:02)
[2017-11-13] MEDS: SUCRALFATE 1gm/10ml ORAL LIQUID PO SCH ×4 (06:07→21:03)
[2017-11-13] MEDS: MULTI-VITAMIN + MINERAL TABLET PO SCH (08:42)
[2017-11-13] MEDS: CARVEDILOL 6.25 MG TABLET PO SCH ×2 (08:42→17:31)
[2017-11-13] MEDS: DOCUSATE SODIUM 100 MG CAPSULE PO SCH ×2 (08:43→21:01)
[2017-11-13] MEDS: MAGNESIUM OXIDE 400 MG TABLET PO SCH ×2 (08:43→21:02)
[2017-11-13] MEDS: LEVETIRACETAM 500 MG TABLET PO SCH ×2 (08:43→21:02)
[2017-11-13] MEDS: HEPARIN SUB-Q 5,000units/0.5ml INJECTION SQ SCH ×2 (08:43→21:00)
[2017-11-13] MEDS: AMLODIPINE 10 MG TABLET PO SCH (08:43)
[2017-11-13] MEDS: ONDANSETRON 4 MG TABLET PO PRN (09:45)
--- NOTE | 2017-11-13 10:42 | IRU Progress Note ---
- Subjective/Serverity of Illness Date: 11/13/17 Pippa was interviewed and examined in her room on acute inpatient rehabilitation. She has been seemed Dr. Lockett. We discussed his evaluation and his recommendations for MRI without and with contrast. (I discussed with Dr. Lockett the issue of her renal failure. We are aware of the creatinine of 1.3. He does feel as though the contrast is necessary to diagnose inflammatory conditions.) She continues to have some emesis of small amounts of food. This comes and goes but happened this morning 2 or 3 times with small quantities brought up. Over the weekend her knees tended to buckle occasionally but she did not fall. She continues to report paresthesias as well as extremity weakness. Bowels apparently are moving. Her paresthesias are unchanged and start in the mid chest on down. Her blood pressure appears to be adequately controlled for the most part. Brief therapy update: For occupational therapy she is contact-guard assist for bed/chair/wheelchair transfers. Tub transfers and grooming etc. is standby assist. For physical therapy she was able to ambulate 214 feet with contact guard assist of 1 person. She has been evaluated by speech therapy. RIPA was performed indicating some reduction in immediate recall. They recommend seeing her twice weekly. Exam Vital Signs: Temperature 98.7 F 11/13/17 08:00 Pulse Rate 105 H 11/13/17 08:00 Respiratory Rate 12 11/13/17 08:00 Blood Pressure 144/97 H 11/13/17 08:00 Pulse Oximetry 98 11/13/17 08:00 Height/Weight/BMI: Height 1.65 m Weight 142.6 kg Body Mass Index 52.3 - Constitutional Present: mild distress (with regard to paresthesias.), well nourished, well developed, morbidly obese - Routine HEENT Exam Head: Present: normocephalic Eye: Present: EOMI ENT: Present: mucous membranes moist, oropharynx clear - Routine Neck Exam Present: supple - Routine Respiratory Exam Present: CTA bilaterally. Absent: respiratory distress, stridor, wheezes, crackles - Routine Cardiovascular Exam Present: RRR, S1, S2. Absent: murmur, S3, S4 - Routine Abdominal Exam Present: soft, normoactive bowel sounds, non distended. Absent: tenderness - Routine Extremities Exam Present: no edema, normal capillary refill - Routine Skin Exam Present: dry, warm - Routine Neurological Exam Present: alert, oriented X3, CN II-XII intact Today she did not display any evidence of reduced short-term memory as she had late last week. - Routine Psychiatric Exam Present: normal affect, normal thought process, cooperative Results IRU - Labs Labs: Have reviewed laboratory data and other providers notes. IRU A/P (1) Encephalopathy Current visit: Yes Status: Acute Her encephalopathy appears to be clearing a bit. Please see speech therapy notes in this regard. (2) Nausea & vomiting Qualifiers: Vomiting type: unspecified Vomiting Intractability: non-intractable Qualified Code(s): R11.2 - Nausea with vomiting, unspecified Current visit: No Status: Acute This is secondary to her gastric bypass procedure. (3) Physical debility Current visit: Yes Status: Acute She continues to have significant physical debility although is improving with regard to therapy. Lower extremity weakness continues to be a concern for her safety. (4) Acute kidney injury Current visit: Yes Status: Acute (5) Paresthesias Current visit: Yes Status: Acute Creatinine has improved to 1.3. Discussed with Dr. Lockett who feels as though contrast is necessary for the MRI in view of possible transverse myelitis as well as potential mass lesion evaluation. (6) Benign essential hypertension Current visit: Yes Status: Chronic DVT Prophylaxis: SQ Heparin Resuscitation Status: Full Code - Course Hospital Course: John Subramanian MD: 11/10/17 16:06 Has had a couple of episodes of buckling of the knees of unclear etiology. Blood pressures are well controlled. Remains on Keppra. Continues to demonstrate encephalopathy with repeated statements. 11/13/17 10:44 Blood pressures are improved. Appreciate Dr. Schwartz's evaluation. Continues to demonstrate lower extremity weakness along with subjective paresthesias. - Interventions to Obtain Goals PT Treatment Plan: Balance/Proprioception, Functional Activities, Gait Training , Patient/Family Education, Therapeutic Exercise OT Treatment Plan: ADL (Basic Care), Balance Training, IADL, Pt./Family Education, Ther. Exercise for ADL Goals Progress/Modifications: Discussed with Dr. Lockett as well as with the patient the issue of her paresthesias, memory loss/encephalopathy and weakness particularly with ambulation. Continues to cooperate with therapy. Safety concerns exist. We will proceed with MRI of cervical and thoracic spine an IV lock will be established. Also we will check B12 and folate levels.
--- NOTE | 2017-11-13 11:01 | Consultation ---
DATE OF CONSULTATION 11/13/[address] Subramanian PATIENT'S CHIEF COMPLAINT Weakness and numbness in the arm and legs. HISTORY OF PRESENT ILLNESS Patient is a 22-year-old female with history of morbid obesity who had a gastric bypass surgery in July 2017. The patient has been complaining of severe nausea and gastric problem at that time. Later this year, patient started having progressive numbness and weakness in the arm and leg. She described having a line of numbness and tingling sensation going below her upper chest area down to the legs. Her symptoms have been slowly improving during her admission to the rehab unit. Patient was admitted previously to [facility] in [place] during which she had an MRI of the brain that showed evidence of hypertensive encephalopathy. During her MRI, patient went into a seizure and she became unresponsive. She was Coded. She has had problem with memory loss and confusion since then. Her seizure was treated with Keppra. Her EEG was unremarkable afterwards. The patient was kept on Keppra for seizure prevention. Currently the patient continues to have numbness, tingling and weakness starting from her upper chest area down to the legs. This has recently involved her upper arms too. Her symptoms have been fluctuating in severity and she feels that things are getting slowly better. She has had no facial weakness and no speech problem. She had no recurrence of her seizures. PHYSICAL EXAMINATION On physical examination, the patient was awake, alert, oriented x3. Pupils were round, reactive and equal. Extraocular muscles were intact. Visual field was full. Speech was fluent. Motor examination in the upper extremities was 4+ /5, in the lower extremities was 4 to 4+/5. Sensory examination was diminished for light touch, pinprick and temperature sensation in the lower extremity and the trunk all the way to the lower cervical area. She also had some mild numbness in her hands. Facial sensory was normal. Deep tendon reflexes were 0 to trace/5. Coordination for [id number] and [id number] were affected by weakness. ASSESSMENT 1. 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 This can be triggered by the gastric bypass surgery. 2. We cannot rule out a transverse myelitis or a upper thoracic spinal cord lesion causing some of her symptoms. This would be unusual with the patient's hyporeflexic examination. PLAN 1. Obtain a B12 and folic acid level as soon as possible. 2. Obtain an MRI of the cervical and thoracic spine with and without contrast to rule out combined degeneration of the spinal cord and other structural problems. 3. Provide the patient with IM B12 1000 mcg q. day for a week while she is in the rehab unit. This can be changed to q. monthly afterwards. 4. If B12 level is already elevated, consider treatment with steroids if there is sign of inflammatory process. 5. Continue physical and occupational therapy. KENNETH
[2017-11-13] MEDS ORDERED: GADOTERIDOL 279.3mg/ml - 10ml vial IVP ONE (11:15)
[2017-11-13] MEDS ORDERED: SALINE FLUSH 10ml SYRINGE ONE (11:15)
[2017-11-13] MEDS ORDERED: ALPRAZolam 0.25 MG TABLET PO ONE (12:12)
--- NOTE | 2017-11-13 12:27 | Magnetic Resonance Report ---
EXAM: MR thoracic spine wo/w con INDICATION: paresthesias, muscle weakness-transverse myelitis? COMPARISON: None available. TECHNIQUE: Multi-planar multi-weighted magnetic resonance imaging of the thoracic spine was performed before and following the uneventful intravenous demonstration of 28 mL of ProHance. FINDINGS: Technically challenging exam due to patient motion artifact. No acute fracture. Normal kyphosis of the thoracic spine is maintained. No listhesis. No marrow replacing process. A hemangioma is present within T2. The intervertebral disc spaces are maintained. No significant disc bulging, spinal canal stenosis, or neural foraminal narrowing. The thoracic cord is normal in size and signal. No abnormal enhancement is demonstrated on postcontrast sequences. Limited views of the thorax and abdomen are unremarkable. IMPRESSION: No MRI findings to explain the patient's symptoms. .
--- NOTE | 2017-11-13 12:35 | Magnetic Resonance Report ---
EXAM: MR cervical spine wo/w con INDICATION: paresthesias, muscle weakness-transverse myelitis? COMPARISON: None available. TECHNIQUE: Multiplanar multi-weighted magnetic resonance imaging of the cervical spine was performed before and following the uneventful intravenous administration of 28 mL of ProHance. FINDINGS: Technically challenging exam due to patient motion artifact. Limited views of the brain, posterior fossa, and brainstem are normal. Normal signal voids are present in the vertebral arteries. No acute fracture or listhesis. Lordosis of the cervical spine is maintained. No marrow replacing process. The intervertebral disc spaces are maintained. The cervical cord is normal in size and signal. No abnormal enhancement is demonstrated on postcontrast sequences. No pathologic cervical lymphadenopathy is present. Level by level degenerative changes are as follows: C2-C3: No significant disc/facet abnormality, spinal canal stenosis, or neural foraminal narrowing. C3-C4: No significant disc/facet abnormality, spinal canal stenosis, or neural foraminal narrowing. C4-C5: No significant disc/facet abnormality, spinal canal stenosis, or neural foraminal narrowing. C5-C6: No significant disc/facet abnormality, spinal canal stenosis, or neural foraminal narrowing. C6-C7: No significant disc/facet abnormality, spinal canal stenosis, or neural foraminal narrowing. C7-T1: No significant disc/facet abnormality, spinal canal stenosis, or neural foraminal narrowing. IMPRESSION: Normal MRI of the cervical spine. .
[2017-11-13] MEDS ORDERED: ONDANSETRON 4 MG/2 ML INJECTION IVP ONE (13:43)
--- NOTE | 2017-11-13 13:51 | Progress Note ---
- Date 11/13/17 Subjective: Pippa was seen while working with physical therapy. She began feeling lightheaded, hot and nauseated. She was retching when I saw her. She is weak overall. She denied feeling short of breath. She had not passed out. She took a Xanax earlier before her MRI, and she never has had Xanax before, and she wonders if her current symptoms are side effects. Objective Vital signs: Temperature 98.7 F 11/13/17 08:00 Pulse Rate 105 H 11/13/17 08:00 Respiratory Rate 12 11/13/17 08:00 Blood Pressure 144/97 H 11/13/17 08:00 Pulse Oximetry 98 11/13/17 08:00 Height/Weight/BMI: Height 1.65 m Weight 142.6 kg Body Mass Index 52.3 - Constitutional Present: mild distress, morbidly obese - Routine HEENT Exam Head: Present: normocephalic Eye: Present: PERRL. Absent: conjunctival icterus, scleral injection ENT: Present: mucous membranes moist - Routine Respiratory Exam Present: CTA bilaterally - Routine Cardiovascular Exam Present: RRR, S1, S2 - Routine Abdominal Exam Present: soft - Routine Extremities Exam Present: no edema - Routine Skin Exam Present: intact, dry, warm - Routine Neurological Exam Present: alert, oriented X3, normal speech - Routine Psychiatric Exam Present: normal affect, normal thought process, cooperative Results - Labs CBC & Chem 7: 11/09/17 04:41 11/10/17 04:25 Assessment and Plan (1) Nausea & vomiting Current visit: No Status: Acute (2) Encephalopathy Current visit: Yes Status: Acute (3) Physical debility Current visit: Yes Status: Acute Assessment and Plan: Acute Medical Conditions. Encephalopathy - recent hypertensive encephalopathy with seizure. Hypokalemia (K 3.5), present on admission. Recent acute renal failure with elevated creatinine. Paresthesias and motor weakness. Generalized debility. Intractable nausea and vomiting with high risk of dehydration. Recent bilateral otitis externa consistent with impetigo or superficial community-acquired MRSA infection - treated initially with vancomycin Chronic Medical Conditions. Morbid obesity - BMI > 50. Hyperlipidemia. Hypertension. GERD. Constipation. Intractable nausea and vomiting. Obstructive sleep apnea. Plan - 11/13/17: Patient had cervical and thoracic spine MRIs to rule out transverse myelitis. These were both negative. Vitamin B12 and folate have been ordered and are pending. Zofran administered for nausea. Check CBC and BMP because of recent MRSA infection, recent ANGEL, and her tendency to have electrolyte imbalances secondary to frequent nausea and vomiting. Blood pressure is frequently elevated. The patient reports this is chronic. Continue Norvasc and Coreg. Heart rate would tolerate increase in Coreg if this persists. Discussed with Dr. Subramanian and nursing staff. GI Prophylaxis: Protonix Resuscitation Status: Full Code - Physician Narrative Narrative: Date: 11/13/17 Time: 1347 Hospital Course Summary Disclaimer: The visit summary below is not to be considered part of the above Progress Note. Hospital Course: Plan - 11/09/17: Agree with admission to IRU for strengthening and improvement in functional abilities. Encourage participation in therapies. Labs obtained on admission. SCr remains elevated from baseline at 1.5 and GFR 43. Will continue to monitor periodically throughout admission. Hypokalemia noted (K 3.5). Will given KCl 20 mEq po x 1 dose and recheck BMP in AM. CBC was unremarkable. Will continue home medications for chronic conditions. - Lipitor 80mg QHS - hyperlipidemia. - Norvasc 10mg daily and Coreg 6.25 BID - hypertension. - Tums, Carafate and Protonix - GERD. - Dulcolax and Colace - constipation. Continue Keppra due to recent seizure at [facility]. Monitor neurologic function closely. Encourage use of home CPAP machine for obstructive sleep apnea. Monitor blood pressure closely. Upon discharge, patient's care will be returned to her PCP, Dr. Victor. 11/13/17 Patient had cervical and thoracic spine MRIs to rule out transverse myelitis. These were both negative. Vitamin B12 and folate have been ordered and are pending. Zofran administered for nausea. Check CBC and BMP because of recent MRSA infection, recent ANGEL, and her tendency to have electrolyte imbalances secondary to frequent nausea and vomiting. Blood pressure is frequently elevated. The patient reports this is chronic. Continue Norvasc and Coreg. Heart rate would tolerate increase in Coreg if this persists.
[2017-11-13] MEDS: ATORVASTATIN 40 MG TABLET PO SCH (21:01)
[2017-11-14] MEDS: SUCRALFATE 1gm/10ml ORAL LIQUID PO SCH ×4 (06:18→22:06)
[2017-11-14] MEDS: PANTOPRAZOLE 40 MG TABLET PO SCH ×2 (06:18→22:08)
[2017-11-14] MEDS: ACETAMINOPHEN 325 MG TABLET PO PRN ×2 (06:18→17:40)
[2017-11-14] MEDS: ONDANSETRON 4 MG TABLET PO PRN (08:01)
[2017-11-14] MEDS: MULTI-VITAMIN + MINERAL TABLET PO SCH (08:02)
[2017-11-14] MEDS: AMLODIPINE 10 MG TABLET PO SCH (08:03)
[2017-11-14] MEDS: LEVETIRACETAM 500 MG TABLET PO SCH ×2 (08:03→22:08)
[2017-11-14] MEDS: DOCUSATE SODIUM 100 MG CAPSULE PO SCH ×2 (08:03→22:09)
[2017-11-14] MEDS: CARVEDILOL 6.25 MG TABLET PO SCH (08:03)
[2017-11-14] MEDS: MAGNESIUM OXIDE 400 MG TABLET PO SCH ×2 (08:03→22:08)
[2017-11-14] MEDS: HEPARIN SUB-Q 5,000units/0.5ml INJECTION SQ SCH ×2 (08:04→22:07)
--- NOTE | 2017-11-14 10:38 | IRU Progress Note ---
- Subjective/Serverity of Illness Date: 11/14/17 Pippa was reassessed in her room on acute inpatient rehabilitation. She is cooperative with therapy. She reports that her knees tended to buckle one or 2 times in the last 24 hours. Nevertheless she is walking with a front-wheeled walker with assistance. She continues to have the same amount of paresthesias. She feels like her thighs are increased in size. We reviewed with her the results of the thoracic spine and cervical spine MRI both of which are normal/negative. Dr. Lockett was here as well and discussed with her. Her B12 level was drawn yesterday but will not be run until tomorrow. He is suggesting the possibility of nerve conduction tests for CIDP. I will discuss this with him and likely we will plan to do this as an outpatient. Her potassium is a bit down at 3.5 and she was given an additional dose of 40 mEq of potassium chloride. Her creatinine is normal after the contrast was given. Exam Vital Signs: Temperature 98.0 F 11/14/17 08:00 Pulse Rate 100 11/14/17 08:00 Respiratory Rate 18 11/14/17 08:00 Blood Pressure 148/99 H 11/14/17 08:00 Pulse Oximetry 98 11/14/17 08:00 Height/Weight/BMI: Height 1.65 m Weight 142.6 kg Body Mass Index 52.3 - Constitutional Present: no acute distress, well nourished, well developed, morbidly obese - Routine HEENT Exam Head: Present: normocephalic Eye: Present: EOMI ENT: Present: mucous membranes moist, oropharynx clear - Routine Neck Exam Present: supple - Routine Respiratory Exam Present: CTA bilaterally. Absent: wheezes - Routine Cardiovascular Exam Present: RRR, S1, S2. Absent: murmur - Routine Abdominal Exam Present: soft, normoactive bowel sounds, non distended. Absent: tenderness - Routine Extremities Exam Present: no edema, normal capillary refill - Routine Skin Exam Present: dry, warm - Routine Neurological Exam Present: alert, oriented X3, CN II-XII intact Motor exam was performed. She has good strength bilaterally in the upper and lower extremities upon flexion and extension at the elbows, wrists, fingers extension, hips knees and ankles. No fasciculations are seen at this time. - Routine Psychiatric Exam Present: normal affect, normal thought process (thought process appears to be improved. Memory seems to be improved.) Results IRU - Labs Labs: I reviewed the thoracic and cervical spine MRIs as well as laboratory results and other providers notes. IRU A/P (1) Encephalopathy Current visit: Yes Status: Resolved Her thought process appears to be normal at the present time. We will recommend speech therapy 30 minutes twice weekly. (2) Nausea & vomiting Qualifiers: Vomiting type: unspecified Vomiting Intractability: non-intractable Qualified Code(s): R11.2 - Nausea with vomiting, unspecified Current visit: No Status: Acute Continues to have difficulty with keeping things down, likely secondary to her gastric bypass procedure. (3) Physical debility Current visit: Yes Status: Acute (4) Acute kidney injury Current visit: Yes Status: Resolved Follow-up creatinine is normal after contrast was given yesterday. (5) Paresthesias Current visit: Yes Status: Acute (6) Benign essential hypertension Current visit: Yes Status: Chronic Blood pressures are running a bit high. Management per hospitalist service. DVT Prophylaxis: SQ Heparin Resuscitation Status: Full Code - Course Hospital Course: John Subramanian MD: 11/10/17 16:06 Has had a couple of episodes of buckling of the knees of unclear etiology. Blood pressures are well controlled. Remains on Keppra. Continues to demonstrate encephalopathy with repeated statements. 11/13/17 10:44 Blood pressures are improved. Appreciate Dr. Schwartz's evaluation. Continues to demonstrate lower extremity weakness along with subjective paresthesias. 11/14/17 10:38 MRIs are negative. Strength appears to be good bilaterally today. Thought process appears to be normal with encephalopathy resolved. Blood pressures continue to be a bit high. B12 level pending tomorrow. - Interventions to Obtain Goals PT Treatment Plan: Balance/Proprioception, Functional Activities, Gait Training , Patient/Family Education, Therapeutic Exercise OT Treatment Plan: ADL (Basic Care), Balance Training, IADL, Pt./Family Education, Ther. Exercise for ADL Goals Progress/Modifications: I have reviewed current data. Thankfully her MRI results are negative of cervical and thoracic spines. No evidence of transverse myelitis nor mass lesion. To me, her strength is good now bilaterally in the upper and lower extremities. I do not see any fasciculations at present. B12 level is pending. I will discuss with Dr. Lockett the issue of whether to do nerve conduction test now or down the road. She is cooperative with therapy and making progress. Recommend the following plan of care: Physical therapy: 75 minutes 2 days weekly, 90 minutes 3 days weekly Occupational therapy: 75 minutes 2 days weekly, 90 minutes 3 days weekly Speech therapy: 30 minutes 2 days weekly
--- NOTE | 2017-11-14 13:30 | IRU Team Meeting ---
IRU Team Meeting - Nursing Bladder Management Level of Assist: Independent Bladder Frequency of Accidents: No accidents Bowel Assistive Devices Utilized:: Medication Bowel Management Level of Assist: Modified Independent Bowel Frequency of Accidents: No accidents Vital Signs: Vital Signs - 24 hr 11/13/17 16:00 11/13/17 21:53 11/14/17 08:00 Temperature 97.7 F 98.6 F 98.0 F Pulse Rate 99 100 100 Respiratory Rate 16 16 18 Blood Pressure 137/94 H 146/103 H 148/99 H Pulse Oximetry 99 97 98 Current Medications: Acetaminophen (Tylenol) 650 mg PO Q6HR PRN Last Admin: 11/14/17 06:18 Dose: 650 mg Amlodipine Besylate (Norvasc) 10 mg PO DAILY [facility] Last Admin: 11/14/17 08:03 Dose: 10 mg Atorvastatin Calcium (Lipitor) 80 mg PO HS [facility] Last Admin: 11/13/17 21:01 Dose: 80 mg Bisacodyl (Dulcolax) 5 mg PO DAILY PRN PRN Reason: Constipation Calcium Carbonate (Tums) 500 mg PO Q4H PRN Carvedilol (Coreg) 6.25 mg PO BIDWM [facility] Last Admin: 11/14/17 08:03 Dose: 6.25 mg Docusate Sodium (Colace) 100 mg PO BID [facility] Last Admin: 11/14/17 08:03 Dose: 100 mg Heparin Sodium (Porcine) (Heparin Sq) 5,000 units SQ Q12HR [facility] Last Admin: 11/14/17 08:04 Dose: 5,000 units Levetiracetam (Keppra) 500 mg PO BID [facility] Last Admin: 11/14/17 08:03 Dose: 500 mg Magnesium Oxide (Magox) 400 mg PO BID [facility] Last Admin: 11/14/17 08:03 Dose: 400 mg Multivitamins (Theragran) 1 tab PO DAILY [facility] Multivitamins/Minerals (Therapeutic - M) 1 tab PO DAILY [facility] Last Admin: 11/14/17 08:02 Dose: 1 tab Ondansetron HCl (Zofran Po) 4 mg PO Q6H PRN Last Admin: 11/14/17 08:01 Dose: 4 mg Pantoprazole Sodium (Protonix Tab) 40 mg PO 0630,2100 [facility] Last Admin: 11/14/17 06:18 Dose: 40 mg Prednisone (Deltasone 20 Mg) 40 mg PO DAILY [facility] Sucralfate (Carafate Slurry) 1 gm PO ACHS [facility] Last Admin: 11/14/17 11:24 Dose: 1 gm Current Medical Issues: neuropathy, hypertension, gastric bypass with emesis Comments: I certify that I personally led the interdisciplinary team meeting and agree with comments, barriers and goals indicated. Team meeting was held in the patient's room with the patient and the following family members present: patient's mother and Pippa has had some hypokalemia and is on replacement therapy. Her blood pressures continue to be a bit elevated. She does complain of paresthesias. Had negative MRI of cervical and thoracic spine. Dr. Lockett is seeing her and recommends prednisone. B12 level is pending. - Dietary Recommendations regarding post gastric bypass diet are offered. She is on a regular diet but small portions. - Speech Therapy Speech therapy is working with patient regarding short-term memory. - Physical Therapy Bed, Chair, Wheelchair Transfer Assist: Stand By Assist/Supervision Ambulation Ability: Stand By Assist/Supervision Ambulation Distance: 180 Wheelchair Propulsion Ability: Modified Independent Wheelchair Propulsion Distance: 180 Stair Climbing Ability: Total Assistance, 1 Person Assist Number of Steps Climbed: 12 Car Transfer Ability: Contact Guard Assistance Comments: Patient is very motivated. She is cooperative. She is working toward stair climbing using ceiling lift to prevent falls. She is demonstrating good strength with her therapy. Continues to have some episodes of knee buckling. Discussed possible need for a wheelchair at home. - Occupational Therapy Eating Ability: Independent Grooming Ability: Independent Bathing Ability: Stand By Assist/Supervision Upper Body Dressing Ability: Independent Lower Body Dressing Ability: Stand By Assist/Supervision Tub Transfer Assist: Contact Guard Assistance Toileting Assist: Modified Independent Toilet Transfer Assist: Stand By Assist/Supervision Comments: She is doing well with ADLs with set up assistance while in sitting position. However with standing she requires contact-guard assistance due to risk of falling and due to her polyneuropathy. - Goals Physical Therapy Goals: 11/14/17 Goals: 1.) Family Training for stairs and walking. 2.) Wheelchair level training for increased independence. Occupational Therapy Goals: OT goals 11/14/17: 1.) Lower body dressing independently. 2.) Meal preparation with modified independence. 3.) Laundry tasks with modified independence. Speech Therapy Goals: WRITING IMPORTANT INFORMATION DOWN - Barriers to Discharge Barriers to Attaining Goals: Weakness (lower extremity strengthening is performed.), Balance (balance and proprioceptive training are offered.), Medical Limitation (reduced sensation: Compensatory techniques and bracing against stable objects is recommended.) - Care Plan Anticipated Length of Stay (days): 5 Anticipated DC Destination: Home, Self Care, Home Health Service I have led this team conference and agree with the plan. Interventions/Goals: Patient is very motivated and cooperative. She does have fear of falling. Does have occasional episodes of knees "buckling." She will likely need a wheelchair at home for safety. However, B12 level is ordered and will be done early tomorrow morning. If that is low, we will begin injectable B12 which should improve her paresthesias and strength. Secondly, Dr. 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 At some point she will need outpatient nerve conduction tests/EMGs. He recommends starting prednisone which we will start today. Hopefully this will improve her paresthesias and strength over the next 48 hours. Recommend continuing working with the patient in view of these pending medical issues.
--- NOTE | 2017-11-14 13:36 | Progress Note ---
DATE 11/14/[address] Subramanian PATIENT'S CHIEF COMPLAINT Progressive weakness and numbness in the extremities. HISTORY OF PRESENT ILLNESS The patient continues to have mild to moderate weakness in her legs and upper arms. Her numbness has not changed since yesterday. This has involved her trunk from the upper chest down. She also has some mild numbness in her arms. The patient had an MRI of the cervical and thoracic spine that showed no significant abnormalities and no signs of transverse myelitis or combined degeneration problem. Her B12 and folic acid level are still pending. PHYSICAL EXAMINATION On physical examination, the patient is areflexic. Her plantar reflexes are in flexion bilaterally. Her motor examination was in the 4-4+/5 in all extremities. This is slightly weaker in the legs compared to the arms. Sensory examination was limited for light touch and pinprick in the lower extremities all the way up to the upper trunk and the upper arms. ASSESSMENT Progressive weakness and sensory loss affecting the extremities and the trunk. The patient workup was negative for transverse myelitis and combined degeneration so far. Her B12 and folic acid level are still pending. Other considerations include inflammatory sensory motor polyneuropathy like CIDP and MADSAM which is a multifocal acquired demyelinating sensory and motor inflammatory neuropathy. PLAN 1. Obtain EMG and nerve conduction studies to evaluate for inflammatory neuropathy. 2. Follow up on the result of the B12 and folic acid level and treat that accordingly. 3. If the EMG and nerve conduction studies are positive for inflammatory neuropathy, the patient would benefit from being on a high dose steroid titration. This can be started at 40 mg p.o. q.d. of prednisone for 2-4 weeks, then going down to 30, 20 and 10 mg over a two week period each. 4. Continue physical and occupational therapy. MTDD
[2017-11-14] MEDS: PredniSONE 20 MG TABLET PO SCH (14:51)
[2017-11-14] MEDS: CARVEDILOL 12.5 MG TABLET PO SCH (18:18)
[2017-11-14] MEDS: ATORVASTATIN 40 MG TABLET PO SCH (22:07)
[2017-11-15] MEDS: ACETAMINOPHEN 325 MG TABLET PO PRN ×3 (01:21→18:26)
[2017-11-15] MEDS: SUCRALFATE 1gm/10ml ORAL LIQUID PO SCH ×4 (06:38→21:04)
[2017-11-15] MEDS: PANTOPRAZOLE 40 MG TABLET PO SCH ×2 (06:39→21:04)
[2017-11-15] MEDS ORDERED: MULTI-VITAMIN PLAIN TABLET PO SCH (09:00)
[2017-11-15] MEDS: DOCUSATE SODIUM 100 MG CAPSULE PO SCH ×2 (09:35→21:00)
[2017-11-15] MEDS: MAGNESIUM OXIDE 400 MG TABLET PO SCH ×2 (09:35→21:04)
[2017-11-15] MEDS: PredniSONE 20 MG TABLET PO SCH (09:35)
[2017-11-15] MEDS: LEVETIRACETAM 500 MG TABLET PO SCH ×2 (09:35→21:04)
[2017-11-15] MEDS: AMLODIPINE 10 MG TABLET PO SCH (09:35)
[2017-11-15] MEDS: HEPARIN SUB-Q 5,000units/0.5ml INJECTION SQ SCH ×2 (09:36→21:04)
[2017-11-15] MEDS: ONDANSETRON 4 MG TABLET PO PRN (09:53)
[2017-11-15] MEDS: CARVEDILOL 12.5 MG TABLET PO SCH ×2 (09:53→17:43)
[2017-11-15] MEDS: MULTI-VITAMIN + MINERAL TABLET PO SCH (12:14)
--- NOTE | 2017-11-15 16:20 | Progress Note ---
DATE 11/15/[address] Subramanian The patient's chief complaint is diffuse weakness and numbness in the extremities. HISTORY OF PRESENT ILLNESS The patient received her first dosage of prednisone yesterday. She got another dosage earlier today. This has made little improvement in her weakness and numbness so far. She has been able to walk better. She has better feeling of her abdominal skin after those steroids. The patient has been stable mentally. She had no problem sleeping and no other side effect reported from the prednisone. Her examination is about the same as it was at the last evaluation. ASSESSMENT 1. 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 This has been treated with prednisone. The patient has shown some mild signs of improvement so far. 2. No evidence of B12 deficiency. The patient's B12 level was normal at 449. She had a folate level of over 20 which is acceptable. PLAN 1. Continue prednisone titration as recommended from 40 mg to 10 mg over an 8- week period. 2. The patient may follow up with Dr. Lockett within 2-3 weeks after discharge. [facility]
[2017-11-15] MEDS: ATORVASTATIN 40 MG TABLET PO SCH (21:04)
[2017-11-16] MEDS: PANTOPRAZOLE 40 MG TABLET PO SCH ×2 (06:07→21:58)
[2017-11-16] MEDS: ACETAMINOPHEN 325 MG TABLET PO PRN ×3 (06:07→21:59)
[2017-11-16] MEDS: SUCRALFATE 1gm/10ml ORAL LIQUID PO SCH ×4 (06:07→21:58)
[2017-11-16] MEDS: AMLODIPINE 10 MG TABLET PO SCH (08:24)
[2017-11-16] MEDS: CARVEDILOL 12.5 MG TABLET PO SCH ×2 (08:24→17:35)
[2017-11-16] MEDS: HEPARIN SUB-Q 5,000units/0.5ml INJECTION SQ SCH ×2 (08:24→21:57)
[2017-11-16] MEDS: LEVETIRACETAM 500 MG TABLET PO SCH ×2 (08:24→21:58)
[2017-11-16] MEDS: PredniSONE 20 MG TABLET PO SCH (08:24)
[2017-11-16] MEDS: DOCUSATE SODIUM 100 MG CAPSULE PO SCH ×2 (08:25→21:57)
[2017-11-16] MEDS: MULTI-VITAMIN + MINERAL TABLET PO SCH (08:25)
[2017-11-16] MEDS: MAGNESIUM OXIDE 400 MG TABLET PO SCH ×2 (08:25→21:58)
--- NOTE | 2017-11-16 10:38 | IRU Progress Note ---
- Subjective/Serverity of Illness Date: 11/16/17 Pippa states that her paresthesias are somewhat improved. In particular the reduced sensation on her abdomen is improved as she can feel the heparin injections more at this time. She reports that she is more stable on her feet. She will however require a wheelchair for ambulation for the most part as she remains standby assist for ambulation with a front-wheeled walker. Her knees have not buckled nearly as much as before. She denies any chest pain or shortness of breath. Her appetite remains good. She states that she is not "spit up" nor vomited in the past couple of days which is a significant improvement. She denies any abdominal pain. She has tolerated the steroids adequately. Had difficulty sleeping the first night but otherwise has done fine. I reviewed with her the results of her iron level at 17 with normal TIBC. Also reviewed B12 at 449 which is in the lower end of normal. We will go ahead and give her a B12 injection for the time being. Exam Vital Signs: Temperature 97.9 F 11/16/17 08:00 Pulse Rate 94 11/16/17 08:00 Respiratory Rate 20 11/16/17 08:00 Blood Pressure 133/98 H 11/16/17 08:00 Pulse Oximetry 95 11/16/17 08:00 Height/Weight/BMI: Height 1.65 m Weight 142.6 kg Body Mass Index 52.3 - Constitutional Present: no acute distress, well nourished, well developed, morbidly obese, cooperative - Routine HEENT Exam Head: Present: normocephalic Eye: Present: EOMI ENT: Present: mucous membranes moist, oropharynx clear - Routine Respiratory Exam Present: CTA bilaterally. Absent: wheezes - Routine Cardiovascular Exam Present: RRR, S1, S2. Absent: murmur - Routine Abdominal Exam Present: soft, normoactive bowel sounds, non distended. Absent: tenderness - Routine Extremities Exam Present: no edema, pulses intact. Absent: cyanosis, clubbing - Routine Skin Exam Present: dry, warm - Routine Neurological Exam Present: alert, oriented X3, CN II-XII intact I did reassess her neurologic status today. She is moving all 4 extremities. Her strength appears to be quite good bilaterally in the upper and lower extremities. I did not assess sensation today. No fasciculations are identified. - Routine Psychiatric Exam Present: normal affect Results IRU - Labs Labs: Reviewed laboratory results, chart findings etc. IRU A/P (1) Encephalopathy Current visit: Yes Status: Resolved (2) Nausea & vomiting Qualifiers: Vomiting type: unspecified Vomiting Intractability: non-intractable Qualified Code(s): R11.2 - Nausea with vomiting, unspecified Current visit: No Status: Resolved (3) Physical debility Current visit: Yes Status: Acute Pippa continues to display physical debility although has done well on therapy. She is standby assist for ambulation and will thus need a wheelchair or transport chair depending on the size of the home. In addition, because of her weakness, she will need a tub/shower bench. (4) Acute kidney injury Current visit: Yes Status: Resolved (5) Paresthesias Current visit: Yes Status: Acute She states that her paresthesias are improved. We will add iron and B12. (6) Benign essential hypertension Current visit: Yes Status: Chronic DVT Prophylaxis: SQ Heparin Resuscitation Status: Full Code - Course Hospital Course: John Subramanian MD: 11/10/17 16:06 Has had a couple of episodes of buckling of the knees of unclear etiology. Blood pressures are well controlled. Remains on Keppra. Continues to demonstrate encephalopathy with repeated statements. 11/13/17 10:44 Blood pressures are improved. Appreciate Dr. Schwartz's evaluation. Continues to demonstrate lower extremity weakness along with subjective paresthesias. 11/14/17 10:38 MRIs are negative. Strength appears to be good bilaterally today. Thought process appears to be normal with encephalopathy resolved. Blood pressures continue to be a bit high. B12 level pending tomorrow. 11/16/17 10:39 She will continue to require a wheelchair versus transport chair because of her weakness. However, she has made significant progress in rehabilitation. Procedures are improved. - Interventions to Obtain Goals PT Treatment Plan: Balance/Proprioception, Functional Activities, Gait Training , Patient/Family Education, Therapeutic Exercise OT Treatment Plan: ADL (Basic Care), Balance Training, IADL, Pt./Family Education, Ther. Exercise for ADL Goals Progress/Modifications: If patient continues to make progress weaning anticipate dismissal in the next 24 hours. She will need a tub/shower bench for home as well as a transport chair versus wheelchair because of her debility. Prescription is provided. Her seizures are improved. Iron is a bit low so we will add that as well as B12 being in the lower end of normal. We'll add injectable B12 for a time.
[2017-11-16] MEDS: CYANOCOBALAMIN (B-12) 1,000mcg/ml INJECTION IM SCH (12:09)
[2017-11-16 16:32] VITALS: O2SAT 98
[2017-11-16] MEDS: ONDANSETRON 4 MG TABLET PO PRN (18:46)
[2017-11-16 20:03] VITALS: RESP 16
[2017-11-16] MEDS: ATORVASTATIN 40 MG TABLET PO SCH (21:57)
[2017-11-17] MEDS: SUCRALFATE 1gm/10ml ORAL LIQUID PO SCH ×2 (05:48→12:22)
[2017-11-17] MEDS: PANTOPRAZOLE 40 MG TABLET PO SCH (05:48)
[2017-11-17] MEDS ORDERED: FERROUS SULFATE 324 MG TABLET PO SCH (08:00)
[2017-11-17] MEDS: HEPARIN SUB-Q 5,000units/0.5ml INJECTION SQ SCH (08:32)
[2017-11-17] MEDS: PredniSONE 20 MG TABLET PO SCH (08:33)
[2017-11-17] MEDS: AMLODIPINE 10 MG TABLET PO SCH (08:33)
[2017-11-17] MEDS: DOCUSATE SODIUM 100 MG CAPSULE PO SCH (08:33)
[2017-11-17] MEDS: MAGNESIUM OXIDE 400 MG TABLET PO SCH (08:33)
[2017-11-17] MEDS: CARVEDILOL 12.5 MG TABLET PO SCH (08:33)
[2017-11-17] MEDS: MULTI-VITAMIN + MINERAL TABLET PO SCH (08:33)
[2017-11-17] MEDS: LEVETIRACETAM 500 MG TABLET PO SCH (08:33)
[2017-11-17 08:34] VITALS: BP 141/97; PULSE 100; TEMP 98.4
[2017-11-17] MEDS: CYANOCOBALAMIN (B-12) 1,000mcg/ml INJECTION IM SCH (09:23)
[2017-11-17] MEDS: ACETAMINOPHEN 325 MG TABLET PO PRN ×2 (09:24→15:06)
[2017-11-17] MEDS ORDERED: FALL RISK - PHARMACY CONSULT MC ONE (09:37)
--- NOTE | 2017-11-17 10:22 | IRU Progress Note ---
- Subjective/Serverity of Illness Date: 11/17/17 Pippa states that she is doing well and is comfortable going home. She states that taking a shower or bath made the paresthesias a bit worse. We discussed the possibility of B12 injections. However Dr. Cline indicates that her level is adequate and she should not need any additional B12. She is prescribed some oral tablets at this time only and not the injection. She denies any chest pain or shortness of breath. She has had no fever. She is stable for dismissal. Exam Vital Signs: Temperature 98.4 F 11/17/17 08:00 Pulse Rate 100 11/17/17 08:00 Respiratory Rate 16 11/17/17 08:00 Blood Pressure 141/97 H 11/17/17 08:00 Pulse Oximetry 98 11/17/17 08:00 Height/Weight/BMI: Height 1.65 m Weight 116 kg Body Mass Index 52.3 - Constitutional Present: no acute distress, well nourished, well developed, cooperative - Routine HEENT Exam Head: Present: normocephalic Eye: Present: EOMI ENT: Present: mucous membranes moist, oropharynx clear - Routine Respiratory Exam Present: CTA bilaterally. Absent: wheezes - Routine Cardiovascular Exam Present: RRR, S1, S2. Absent: murmur - Routine Abdominal Exam Present: soft, normoactive bowel sounds, non distended. Absent: tenderness - Routine Extremities Exam Present: no edema, normal capillary refill - Routine Skin Exam Present: dry, warm - Routine Neurological Exam Present: alert, oriented X3, CN II-XII intact - Routine Psychiatric Exam Present: normal affect, cooperative, good insight, good judgment IRU A/P (1) Encephalopathy Current visit: Yes Status: Resolved Mentation appears to be normal at present. (2) Physical debility Current visit: Yes Status: Acute (3) Acute kidney injury Current visit: Yes Status: Resolved (4) Paresthesias Current visit: Yes Status: Acute (5) Benign essential hypertension Current visit: Yes Status: Chronic DVT Prophylaxis: SQ Heparin Resuscitation Status: Full Code - Course Hospital Course: John Subramanian MD: 11/10/17 16:06 Has had a couple of episodes of buckling of the knees of unclear etiology. Blood pressures are well controlled. Remains on Keppra. Continues to demonstrate encephalopathy with repeated statements. 11/13/17 10:44 Blood pressures are improved. Appreciate Dr. Schwartz's evaluation. Continues to demonstrate lower extremity weakness along with subjective paresthesias. 11/14/17 10:38 MRIs are negative. Strength appears to be good bilaterally today. Thought process appears to be normal with encephalopathy resolved. Blood pressures continue to be a bit high. B12 level pending tomorrow. 11/16/17 10:39 She will continue to require a wheelchair versus transport chair because of her weakness. However, she has made significant progress in rehabilitation. Procedures are improved. 11/17/17 10:21 Anticipate safe transition to home environment with home health PT and OT. She will require assistance at home. - Interventions to Obtain Goals PT Treatment Plan: Balance/Proprioception, Functional Activities, Gait Training , Patient/Family Education, Therapeutic Exercise OT Treatment Plan: ADL (Basic Care), Balance Training, IADL, Pt./Family Education, Ther. Exercise for ADL
--- NOTE | 2017-11-17 12:01 | Discharge Summary ---
Discharge Information Date of admission: 11/08/17 15:12 Anticipated date of discharge: 11/17/17 Attending Physician: John Subramanian MD Primary care physician: MD Karan Johnson MD Consults: 11/08/17 16:20 Physician Consult [CONS] Routine Consulting Provider: Lawson Bush Reason For Exam: medical management Ordering Provider has Notified Electrician Helper: Yes 11/09/17 15:16 Dietary Consult [CONS] Routine Comment: Reason For Exam: bariatric surgery 11/10/17 12:42 Physician Consult [CONS] Routine Consulting Provider: Katrin Lockett Reason For Exam: leg weakness and paresthesias Ordering Provider has Notified Electrician Helper: No - Discharge Diagnosis (1) Encephalopathy Status: Resolved (2) Physical debility Status: Acute (3) Acute kidney injury Status: Resolved (4) Paresthesias Status: Acute (5) Benign essential hypertension Status: Chronic 1. Acute hypertensive encephalopathy 2. Generalized debility 3. Acute kidney injury 4. Benign essential hypertension 5. Paresthesias with evidence for inflammatory polyneuropathy - Laboratory Labs: 11/13/17 09:47 11/16/17 09:50 History of Present Illness HPI: Pippa had undergone a Karan-en-Y gastric bypass procedure in July 2017 for morbid obesity. Since then she has had frequent episodes of emesis and has required intravenous fluids. Most recently she became quite dehydrated and had a bump in her creatinine up to 3.4. She did also been treated with vancomycin for community acquired MRSA external otitis. Should been sent to via [facility] on 10/22/2017. Nephrology felt as though the acute kidney injury was most likely related to dehydration or tubular toxicity induced by vancomycin. Creatinine did improve but was still elevated at 1.5 as of 2017. Renal ultrasound was negative and she did not require dialysis. While in [place] she was noted to have excessively elevated blood pressures. MRI demonstrated findings consistent with hypertensive encephalopathy. She had episodes of confusion and short-term memory loss. She did develop a seizure while in [place] and was started on Keppra. She developed paresthesias of her abdomen as well as lower extremity weakness ever since her bypass. Because of her hypertensive encephalopathy, she developed multiple functional deficits and was felt to be a good candidate for acute inpatient rehabilitation. She was transferred to acute inpatient rehabilitation at [facility] on 11/08/2017. Hospital Course This is a general summary of the patient's hospital course. For more details refer to the complete medical record. While on acute inpatient rehabilitation she was followed by the hospitalist team as well as Dr. Subramanian. Her medications were adjusted with regard to her blood pressure. Her initial blood pressures were in the 140/90 range. They did jump up to 149/103 and 171/106 on 11/10/2017. Subsequently, they came down nicely into the 130/80-90 range. With regard to her encephalopathy, she continued to demonstrate poor short-term memory for a time. This gradually cleared. At the time of dismissal she appears to have normal mentation. Her initial creatinine was 1.5 on 11/09/2017. Her final creatinine was 1.0 on . The patient was seen in consultation by Dr. Lockett because of paresthesias involving her trunk and chest and lower extremities as well as lower extremity weakness. MRI of cervical and thoracic spines were obtained which were unremarkable. B12 level was 449 which was in the normal range. Hospitalist team did send her home on some oral vitamin B12 tablets. Iron level was low at 97 with normal TIBC. She was started on supplemental iron. Potassium remained somewhat low at 3.[address] Lockett entertained the possibility of an inflammatory polyneuropathy in view of her paresthesias and weakness. He recommended prednisone 40 mg daily for 2 weeks (starting on 11/14/2017) then 30 mg daily for 2 weeks, 20 mg daily for 2 weeks and finally 10 mg daily for 2 weeks then stopping. In addition, it was recommended that the patient undergo EMGs/nerve conduction tests as an outpatient. An appointment was made with Dr. Lockett as an outpatient to follow this up. In addition she will see Dr. Babin for primary care. The following levels of functional competence are to be considered preliminary information. The reader is encouraged to refer to actual therapy notes and reports for specific details. She was seen by occupational therapy and at the conclusion of treatment the following functional status was noted: She was independent for eating, grooming , upper and lower body dressing. She was independent for toileting. She was stand by assist using grab bars for bathing for stability while standing. She was independent for transfers. She was also seen and followed closely by physical therapy. She was modified independent level for bed/chair/wheelchair transfers but independent for supine to sit and sit to supine bed mobility. She was standby assist for front-wheeled walker walking but was felt to be unstable for complete independent walking with a walker. For this reason she does require a wheelchair for home ambulation. She was modified independent for wheelchair propulsion ability. It is hoped that her paresthesias and strength will improve with continued home health physical therapy and occupational therapy as well as the use of corticosteroids and B12. She will be followed up as an outpatient by neurology and Dr. Alvarado. Hospital course: Plan - 11/09/17: Agree with admission to IRU for strengthening and improvement in functional abilities. Encourage participation in therapies. Labs obtained on admission. SCr remains elevated from baseline at 1.5 and GFR 43. Will continue to monitor periodically throughout admission. Hypokalemia noted (K 3.5). Will given KCl 20 mEq po x 1 dose and recheck BMP in AM. CBC was unremarkable. Will continue home medications for chronic conditions. - Lipitor 80mg QHS - hyperlipidemia. - Norvasc 10mg daily and Coreg 6.25 BID - hypertension. - Tums, Carafate and Protonix - GERD. - Dulcolax and Colace - constipation. Continue Keppra due to recent seizure at [facility]. Monitor neurologic function closely. Encourage use of home CPAP machine for obstructive sleep apnea. Monitor blood pressure closely. Upon discharge, patient's care will be returned to her PCP, Dr. Victor. 11/13/17 Patient had cervical and thoracic spine MRIs to rule out transverse myelitis. These were both negative. Vitamin B12 and folate have been ordered and are pending. Zofran administered for nausea. Check CBC and BMP because of recent MRSA infection, recent ANGEL, and her tendency to have electrolyte imbalances secondary to frequent nausea and vomiting. Blood pressure is frequently elevated. The patient reports this is chronic. Continue Norvasc and Coreg. Heart rate would tolerate increase in Coreg if this persists. Time spent with patient: greater than 35 minutes Resuscitation Status: Full Code Discharge Plan - Med Rec/Dispo Referrals/Follow Up: Katrin Lockett MD [Physician] - (follow up with Dr. Lockett within 2-3 weeks after discharge. ) Elizabeth Alvarado DO [Physician] - (Dr. Delmi Alvarado on 11/22/17 at 11:15 am for new patient appt. Check in at 11:[address] [place] [address]) Naomi Instructions: Fall Prevention (DC) Prescriptions: New Amlodipine [Norvasc] 10 mg PO DAILY #30 tab Atorvastatin [Lipitor] 80 mg PO HS #30 tab Bisacodyl EC TAB [Dulcolax] 5 mg PO DAILY PRN tab PRN Reason: Constipation CALCIUM CARBONATE Chewable [Tums] 500 mg PO Q4H PRN #60 tab.chew PRN Reason: Indigestion Carvedilol [Coreg] 12.5 mg PO BIDWM #60 tab Cyanocobalamin (Vitamin B-12) [Vitamin B-12] 1 tab PO DAILY #30 tab Docusate Sodium [Colace] 100 mg PO BID cap Ferrous Sulfate [Feosol] 324 mg PO WB tab Magnesium Oxide [Magox] 400 mg PO BID #28 tab Multi-Vitamin + Mineral [Therapeutic - M] 1 tab PO DAILY tab Pantoprazole Tab [Protonix Tab] 40 mg PO 0630,2100 #60 tab Sucralfate Oral Liq [Carafate Slurry] 1 gm PO ACHS #1 bottle Acetaminophen [Tylenol] 650 mg PO Q6HR PRN tab PRN Reason: Pain Levetiracetam [Keppra] 500 mg PO BID #60 tab Ondansetron [Zofran Odt] 1 tab PO Q6HR #30 tab PredniSONE [Deltasone 20 mg] 40 mg PO WB #60 tab Continue Etonogestrel [Nexplanon] 68 mg SQ DAILY Discharge Instructions/Outpatient Orders: BMP - Basic Metabolic - [facility] Time Frame: 1 Week, Location: None Selected MAG - Magnesium - [facility] Time Frame: 1 Week, Location: None Selected - Disposition 01 Discharged Home, Self-Care - Dismissal Complete Discharge Instructions are:: Complete
--- NOTE | 2017-11-17 12:05 | Letter to Referring Physician ---
Dear Dr. Alvarado, This is a brief note to bring you up-to-date on the status of Pippa Sheth and her stay on the acute inpatient rehabilitation unit at [facility]. She formerly saw Dr. Victor but apparently has changed primary care coverage to your office. This patient was admitted to [facility] on 10/22/17 for acute renal failure and dehydration. The patient was stabilized while on the acute level and admitted to inpatient rehabilitation unit at [facility] on November 08, 2017. While on inpatient rehabilitation, this patient was seen by occupational therapy , physical therapy and speech therapy and improved overall in their functional ability. Dr. Lockett did follow the patient while on acute inpatient rehabilitation. This was due to her paresthesias and muscle weakness. MRI of thoracic and cervical spines failed to reveal abnormalities. He felt as though she possibly had an inflammatory polyneuropathy and the patient was started on prednisone 40 mg daily for 2 weeks (starting date 11/14/2017). She then will need 30 mg prednisone daily for 2 weeks, 20 mg daily for 2 weeks, 10 mg daily for 2 weeks then discontinuance. Prescription for all this was provided at the time of her dismissal from acute rehabilitation. Please see a copy of the history and physical examination as well as discharge summary faxed separately for further details. Her B12 level was normal here at 449. Thank you for allowing us to be involved in this nice patient's care. Please contact me directly should you have any questions regarding their stay on the inpatient rehabilitation unit. Sincerely, John Subramanian M.D.
== END 2017-11-17 16:03 | disposition home health service (06) | DRG 78 ==
PROVIDERS: ADMIT Internal Medicine; ATTEND Internal Medicine